=== PATIENT | male | born 1990 | race African-American/Black ===

== ENCOUNTER 2022-12-03 14:28 | Emergency (ER) | payer OTHER, SELFPAY ==
[2022-12-03] VITALS (7 sets, daily range): BP systolic 132–159; BP diastolic 80–103; PULSE 64–88; RESP 13–18; TEMP 36.6–36.7; O2SAT 96–100
--- NOTE | ~2022-12-03 | XR_ITS ---
EXAMINATION: XR chest 2V 12/03/2022 15:02 INDICATION: Wheezing and shortness of breath. Chest tightness. PROCEDURE: 2 view chest COMPARISON: No prior studies for comparison. FINDINGS: The lungs are clear. The cardiomediastinal silhouette is within normal limits. There are no pleural effusions. There is no pneumothorax suspected. IMPRESSION: 1: NO ACUTE CARDIOPULMONARY DISEASE. Reviewed, dictated and finalized at location L.
--- NOTE | 2022-12-03 14:30 | ECG_ITS ---
Measurements Intervals [place] Rate: 75 P: 29 [place]: 160 QRS: 82 QRSD: 111 T: 6 QT: 379 QTc: 423 Interpretive Statements SINUS RHYTHM MINIMAL Q WAVES- INFERIOR LEADS BORDERLINE ST-T WAVE ABNORMALITY- INFERIOR LEADS BASELINE WANDER- I, V3 BORDERLINE ECG NO PREVIOUS ECG AVAILABLE FOR COMPARISON Electronically Signed On 12-03-2022 15:03:55 CDT by Quinn Valdes D.O.
[2022-12-03] MEDS: methylPREDNISolone ACETATE 40 MG/ML VIAL 80 MG IM (14:52)
[2022-12-03 14:59] LABS: Basophils Absolute Auto 0.03 K/mm3 (0.00-0.10); Basophils Percent Auto 0.3 % (0.0-1.0); Eosinophils Absolute Auto 0.56 K/mm3 (0.02-0.50); Eosinophils Percent Auto 6.4 % (1.0-6.0); Hematocrit 43.3 % (40.0-54.0); Hemoglobin 13.6 g/dL (14.0-18.0); Immature Granulocyte Absolute 0.04 K/mm3 (0.00-0.00); Immature Granulocyte Percent A 0.5 % (0.0-0.0); Lymphocytes Absolute Auto 1.83 K/mm3 (1.10-4.50); Lymphocytes Percent Auto 21.1 % (18.0-42.0); Mean Corpuscular HGB Conc 31.4 g/dL (32.0-36.0); Mean Corpuscular Volume 82.8 fL (78.0-102.0); Mean Platelet Volume 9.5 fl (8.7-11.0); Monocytes Absolute Auto 1.04 K/mm3 (0.10-0.90); Neutrophils Absolute Auto 5.2 K/mm3 (1.7-7.2); Neutrophils Percent Auto 59.7 % (50.0-70.0); Platelet Count Result 244 K/mm3 (150-420); Red Blood Count 5.23 M/mm3 (4.70-6.10); Red Cell Distribution Width 13.6 % (11.6-14.4); White Blood Count 8.7 K/mm3 (4.8-10.8)
[2022-12-03] MEDS: IPRATROPIUM 0.5 MG/ALBUTEROL SULFATE 2.5 MG AMPUL.NEB 3 ML INHALATION (15:02)
[2022-12-03 15:17] LABS: Troponin I 19.9 ng/L (0.00-60.4)
[2022-12-03 15:34] LABS: Influenza A QL RT-PCR Negative (Negative); Influenza B QL RT-PCR Negative (Negative); SARS-CoV-2 RNA PCR Negative (Negative)
[2022-12-03 15:35] LABS: RSV RNA, RT-PCR Negative (Negative)
--- NOTE | 2022-12-03 15:42 | ED.SOB ---
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 MD elicited complaint: shortness of breath Onset (ago): day(s) Related Data Allergies Allergy/AdvReac Type Severity Reaction Status Date / Time No Known Allergies Allergy Verified 12/03/22 14:32 Review of Systems Review of Systems: All systems reviewed & are unremarkable except as noted in HPI and below PMFSH Past Medical History Medical History Patient denies medical problems Exam Const: General: healthy appearing Nutritional Appearance: well nourished Orientation/consciousness: patient oriented x3 Limitations: no limitations HENMT: Head: normal to inspection Neck: Neck: normal visual inspection Chest: Chest palpation & inspection: normal inspection of the chest Resp: Effort & Inspection: normal respiratory effort Auscultation: wheezes Cardio: Rate: regular rate Rhythm: regular rhythm GI: GI Palp: Yes Soft to palpation Skin: General skin exam: normal color Rashes: no rashes Wounds: no wounds Neuro: Cranial nerves: Yes Nystagmus not present Speech: normal speech Extrem: General: normal to inspection Psych: Mental Status: mental status grossly normal Affect: normal affect Course Course Emergency Course: patient's symptoms have improved after he received a nebulizer treatment and 80mg IM Depo-Medrol. Patient had chest x-ray which shows no acute cardiopulmonary problems. Labs reviewed with patient including a negative COVID. Vital Signs Vital signs: Vital Signs Pulse Rate 86 12/03/22 14:39 Temperature 36.7 C 12/03/22 14:43 Pulse Rate 71 12/03/22 15:30 Respiratory Rate 18 12/03/22 15:14 Blood Pressure 159/103 H 12/03/22 14:43 Pulse Oximetry 100 12/03/22 15:14 Oxygen Delivery Room Air 12/03/22 14:43 MDM - SOB/Dyspnea Lab Data 12/03/22 14:53 Labs: Lab Results 12/03/22 Range/Units 14:53 WBC 8.7 (4.8-10.8) K/mm3 RBC 5.23 (4.70-6.10) M/mm3 Hgb 13.6 L (14.0-18.0) g/dL Hct 43.3 (40.0-54.0) % MCV 82.8 (78.0-102.0) fL MCH 26.0 L (27.0-31.0) pg MCHC 31.4 L (32.0-36.0) g/dL RDW 13.6 (11.6-14.4) % Plt Count 244 (150-420) K/mm3 MPV 9.5 (8.7-11.0) fl Immature Gran % (Auto) 0.5 H (0.0-0.0) % Neut % (Auto) 59.7 (50.0-70.0) % Lymph % (Auto) 21.1 (18.0-42.0) % Larue % (Auto) 12.0 H (2.0-11.0) % Eos % (Auto) 6.4 H (1.0-6.0) % Baso % (Auto) 0.3 (0.0-1.0) % Lymph # (Auto) 1.83 (1.10-4.50) K/mm3 Larue # (Auto) 1.04 H (0.10-0.90) K/mm3 Eos # (Auto) 0.56 H (0.02-0.50) K/mm3 Baso # (Auto) 0.03 (0.00-0.10) K/mm3 Abs Immat Gran (auto) 0.04 H (0.00-0.00) K/mm3 Absolute Neuts (auto) 5.2 (1.7-7.2) K/mm3 Absolute Nucleated RBC 0.00 (0.00-0.00) K/mm3 Nucleated RBC % 0.0 (0-0.0) % Troponin I 19.9 (0.00-60.4) ng/L Influenza A (RT-PCR) Negative (Negative) Influenza B (RT-PCR) Negative (Negative) RSV (RT-PCR) Negative (Negative) SARS-CoV-2 RNA (RT-PCR) Negative (Negative) Critical Care Time Critical Care Time Critical Care Time: No Discharge Plan Discharge Clinical Impression: Wheezing Acute bronchitis Qualifiers: Bronchitis organism: unspecified organism Qualified Code(s): J20.
== END 2022-12-03 15:49 | disposition home or self-care (01) ==
PROVIDERS: Emergency Provider Emergency Medicine
DX: R06.2 Wheezing (principal); J20.9 Acute bronchitis, unspecified; Z20.822 Contact with and (suspected) exposure to COVID-19
CPT/HCPCS: 36415; 71046; 84484; 85025; 87637; 93005; 94640; 96372; 99284; J1030